=== PATIENT | female | born 1940 ===

== ENCOUNTER 2022-09-10 07:15 | Outpatient (CLI) | payer OTHER | END 2022-09-10 07:17 | disposition home or self-care (01) | LOC: LAB 07:15 | PROVIDERS: ATTEND Surgery | DX: R15.9 Full incontinence of feces (principal); R19.4 Change in bowel habit ==

== ENCOUNTER 2022-09-15 07:15 | Day surgery (SDC) | payer OTHER ==
[~2022-09-15 07:15] MED LIST: CANDESARTAN CIL16 MG PO; ELMIRON100 MG PO; LYRICA50 MG PO; SAVELLA25 MG PO; [UNRECOGNIZED DRUG - OTHER] PO
[2022-09-15] MEDS ORDERED: TRAM1TAB98 PO (11:37)
== END 2022-09-15 14:20 | disposition home or self-care (01) ==
LOC: CIR.AMB 07:15
PROVIDERS: ATTEND Surgery
DX: R15.9 Full incontinence of feces (principal); R19.4 Change in bowel habit; Z20.822 Contact with and (suspected) exposure to COVID-19
CPT/HCPCS: 64581; C1778

== ENCOUNTER 2022-09-29 07:41 | Day surgery (SDC) | payer OTHER ==
[~2022-09-29 07:41] MED LIST changes: +EVISTA60 MG PO; +FARXIGA10 MG PO; +TRAM1TAB98 PO
[2022-09-29] MEDS ORDERED: TRAM1TAB98 PO (11:46)
== END 2022-09-29 14:30 | disposition home or self-care (01) ==
LOC: CIR.AMB 07:41
PROVIDERS: ATTEND Surgery
DX: R15.9 Full incontinence of feces (principal); R19.4 Change in bowel habit; Z20.822 Contact with and (suspected) exposure to COVID-19; Z88.2 Allergy status to sulfonamides
CPT/HCPCS: 64590; 95972; C1767